=== PATIENT | male | born 1985 | race Caucasian/White ===

== ENCOUNTER 2016-11-11 13:48 | Emergency (ER) | payer SELFPAY ==
[~2016-11-11] VITALS: Ht 170.2 cm; Wt 96.6 kg
[~2016-11-11 13:48] MED LIST: ADVIL200 M2 PO; ALBUTEROL SULF8.5 GM IH; BLUE; FLEXERIL10 MG PO; FLOVENT 11120 INHALA; LYRICA; MOTRIN100 MG/5 M PO; NAPROXEN; NOHOMEMEDS; PREDNISONE10 MG PO; PREDNISONE20 MG PO; PROVENTIL HFA6.7 GM IH; PROVENTIL,2.5 MG/3 M IH; TYLENOL650 MG/20. PO; VENTOLIN HFA18 GM IH
[2016-11-11 14:40] LABS: BASOPHIL COUNT 0.1 K/uL (0-0.1); EOSINOPHIL (%) 0.6 % (0-5); EOSINOPHIL COUNT 0.1 K/uL (0-0.3); HEMATOCRIT 43.8 % (38.0-50.0); IMMATURE GRANULOCYTE (%) 0.1 % (0.0-0.7); IMMATURE GRANULOCYTE COUNT 0.1 K/uL; MCH 29.9 PG (29.0-34.0); MCHC 34.2 G/DL (30.0-36.0); MCV 87.4 FL (86-99); MEAN PLAT.VOLUME 8.8 uM^3 (9.0-12.4); MONOCYTE (%) 9.4 % (3-12); NEUTROPHIL (%) 69.7 % (45-76); NEUTROPHIL COUNT 7.2 K/uL (1.8-6.4); PLATELET COUNT 281 K/uL (156-360); RBC DIS.WIDTH-CV 12.9 % (11.8-14.6); RBC DIS.WIDTH-SD 40.7 % (39-53); RED BLOOD COUNT 5.01 M/uL (4.00-5.50); WHITE BLOOD COUNT 10.3 K/uL (4.1-10.2)
[2016-11-11 14:54] LABS: CHLORIDE 100 mEq/L (99-109); POTASSIUM 3.4 mEq/L (3.7-5.4); SODIUM 137 mEq/L (136-147)
[2016-11-11 14:56] LABS: GLUCOSE 87 mg/dL (70-99)
[2016-11-11 14:57] LABS: ANION GAP 12 MEQ/L (2-14)
[2016-11-11 15:00] LABS: GFR ESTIMATE (CALCULATED) > 59 mL/min/
[2016-11-11 15:01] LABS: UREA NITROGEN (BUN) 9 mg/dL (9-23)
[2016-11-11 16:28] VITALS: BP 00/00
== END 2016-11-11 16:34 | disposition left against medical advice (07) ==
LOC: EME 13:48
PROVIDERS: Physician Assistant
DX: R53.83 Other fatigue (principal); F17.200 Nicotine dependence, unspecified, uncomplicated
CPT/HCPCS: 80048; 85025; 93005; 99281; 99284

== ENCOUNTER 2016-11-28 23:34 | Emergency (ER) | payer SELFPAY ==
[~2016-11-28] VITALS: Ht 167.6 cm; Wt 97.8 kg
[2016-11-28 23:40] VITALS: BP 161/87
[2016-11-29] LABS: HEMATOCRIT 48.7 % (38.0-50.0); MCH 29.3 PG (29.0-34.0); MCHC 32.9 G/DL (30.0-36.0); MCV 89.2 FL (86-99); MEAN PLAT.VOLUME 8.9 uM^3 (9.0-12.4); PLATELET COUNT 319 K/uL (156-360); RBC DIS.WIDTH-CV 12.7 % (11.8-14.6); RBC DIS.WIDTH-SD 41.7 % (39-53); RED BLOOD COUNT 5.46 M/uL (4.00-5.50); WHITE BLOOD COUNT 9.3 K/uL (4.1-10.2)
[2016-11-29 00:13] LABS: CHLORIDE 102 mEq/L (99-109); POTASSIUM 3.5 mEq/L (3.7-5.4); SODIUM 141 mEq/L (136-147)
[2016-11-29 00:15] LABS: GLUCOSE 91 mg/dL (70-99)
[2016-11-29 00:16] LABS: ANION GAP 11 MEQ/L (2-14)
[2016-11-29 00:18] LABS: GFR ESTIMATE (CALCULATED) > 59 mL/min/
[2016-11-29 00:19] LABS: UREA NITROGEN (BUN) 15 mg/dL (9-23)
[2016-11-29 00:21] LABS: TROP-I INTERPRETATION NEGATIVE; TROPONIN-I < 0.01 ng/mL (0.0-0.30)
== END 2016-11-29 02:49 | disposition left against medical advice (07) ==
LOC: EME 23:34
DX: R07.89 Other chest pain (principal); Z53.21 Procedure and treatment not carried out due to patient leaving prior to being seen by health care provider
CPT/HCPCS: 71020; 80048; 84484; 85027; 93005

== ENCOUNTER 2017-03-10 07:08 | Emergency (ER) | payer SELFPAY ==
[~2017-03-10] VITALS: Ht 170.2 cm; Wt 100.7 kg
[2017-03-10 08:52] VITALS: BP 132/87
== END 2017-03-10 08:53 | disposition home or self-care (01) ==
LOC: EME 07:08
DX: F41.9 Anxiety disorder, unspecified (principal); J45.909 Unspecified asthma, uncomplicated; Z87.891 Personal history of nicotine dependence
CPT/HCPCS: 99281; 99284

== ENCOUNTER 2017-04-02 02:59 | Emergency (ER) | payer SELFPAY ==
[~2017-04-02] VITALS: Ht 170.2 cm; Wt 106.5 kg
[2017-04-02] MEDS ORDERED: ATIVAN1 MG PO (04:50)
[2017-04-02 05:01] VITALS: BP 135/97
== END 2017-04-02 05:03 | disposition home or self-care (01) ==
LOC: EME 02:59
DX: F41.0 Panic disorder [episodic paroxysmal anxiety] (principal); F41.9 Anxiety disorder, unspecified; J45.909 Unspecified asthma, uncomplicated; Z87.891 Personal history of nicotine dependence
CPT/HCPCS: 93005; 99281; 99284

== ENCOUNTER 2017-08-26 09:11 | Emergency (ER) | payer SELFPAY ==
[~2017-08-26] VITALS: Ht 172.7 cm; Wt 110.8 kg
[~2017-08-26 09:11] MED LIST changes: +ATIVAN1 MG PO
[2017-08-26 10:33] LABS: HEMATOCRIT 46.9 % (38.0-50.0); MCH 29.3 PG (29.0-34.0); MCHC 33.5 G/DL (30.0-36.0); MCV 87.7 FL (86-99); MEAN PLAT.VOLUME 9.5 uM^3 (9.0-12.4); PLATELET COUNT 300 K/uL (156-360); RBC DIS.WIDTH-CV 12.8 % (11.8-14.6); RBC DIS.WIDTH-SD 41.1 % (39-53); RED BLOOD COUNT 5.35 M/uL (4.00-5.50); WHITE BLOOD COUNT 5.7 K/uL (4.1-10.2)
[2017-08-26 10:50] LABS: TROP-I INTERPRETATION NEGATIVE; TROPONIN-I < 0.01 ng/mL (0.0-0.30)
[2017-08-26 10:53] LABS: CHLORIDE 103 mEq/L (99-109); SODIUM 138 mEq/L (136-147)
[2017-08-26 10:55] LABS: GLUCOSE 106 mg/dL (70-99)
[2017-08-26 10:56] LABS: ANION GAP 11 MEQ/L (2-14)
[2017-08-26 10:59] LABS: GFR ESTIMATE (CALCULATED) > 59 mL/min/ (58.99-99999)
[2017-08-26 11:00] LABS: UREA NITROGEN (BUN) 8 mg/dL (9-23)
[2017-08-26] MEDS ORDERED: ATARAX,VISTARIL50 MG PO (11:24)
[2017-08-26 11:32] VITALS: BP 121/74
== END 2017-08-26 11:35 | disposition home or self-care (01) ==
LOC: EME 09:11
PROVIDERS: Nurse Practitioner Family
DX: F43.9 Reaction to severe stress, unspecified (principal); F41.9 Anxiety disorder, unspecified; R00.2 Palpitations; J45.909 Unspecified asthma, uncomplicated; Z87.891 Personal history of nicotine dependence
CPT/HCPCS: 71020; 80048; 84484; 85027; 93005; 99281; 99284; Q0177

== ENCOUNTER 2018-01-23 06:50 | Emergency (ER) | payer SELFPAY ==
[~2018-01-23] VITALS: Ht 170.2 cm; Wt 104.2 kg
[~2018-01-23 06:50] MED LIST changes: +ATARAX,VISTARIL50 MG PO
[2018-01-23] MEDS ORDERED: FLEXERIL10 MG PO (08:26)
[2018-01-23] MEDS ORDERED: PREDNISONE10 MG PO (08:26)
[2018-01-23 08:30] VITALS: BP 138/90
== END 2018-01-23 08:30 | disposition home or self-care (01) ==
LOC: EME 06:50
DX: M54.41 Lumbago with sciatica, right side (principal); S39.012A Strain of muscle, fascia and tendon of lower back, initial encounter; R20.2 Paresthesia of skin; J45.909 Unspecified asthma, uncomplicated; F41.9 Anxiety disorder, unspecified; Z87.891 Personal history of nicotine dependence
CPT/HCPCS: 99281; 99284

== ENCOUNTER 2018-02-05 20:21 | Emergency (ER) | payer SELFPAY ==
[~2018-02-05] VITALS: Ht 170.2 cm; Wt 102.0 kg
[2018-02-05 20:29] VITALS: BP 135/104
[2018-02-05 21:23] LABS: HEMATOCRIT 46.6 % (38.0-50.0); HEMOGLOBIN 15.7 G/DL (12.5-16.6); MCHC 33.7 G/DL (30.0-36.0); MCV 89.1 FL (86-99); PLATELET COUNT 282 K/uL (156-360); RBC DIS.WIDTH-CV 13.6 % (11.8-14.6); RBC DIS.WIDTH-SD 44.7 % (39-53); RED BLOOD COUNT 5.23 M/uL (4.00-5.50); WHITE BLOOD COUNT 9.3 K/uL (4.1-10.2)
[2018-02-05 21:53] LABS: TROP-I INTERPRETATION NEGATIVE; TROPONIN-I < 0.01 ng/mL (0.0-0.30)
[2018-02-05 22:17] LABS: CHLORIDE 104 mEq/L (99-109); POTASSIUM 3.8 mEq/L (3.7-5.4); SODIUM 141 mEq/L (136-147)
[2018-02-05 22:19] LABS: GLUCOSE 103 mg/dL (70-99)
[2018-02-05 22:22] LABS: CREATININE 0.8 mg/dL (0.6-1.3); GFR ESTIMATE (CALCULATED) > 59 mL/min/ (58.99-99999)
[2018-02-05 22:23] LABS: UREA NITROGEN (BUN) 14 mg/dL (9-23)
== END 2018-02-06 00:22 | disposition left against medical advice (07) ==
LOC: EME 20:21
DX: R07.9 Chest pain, unspecified (principal); Z53.21 Procedure and treatment not carried out due to patient leaving prior to being seen by health care provider
CPT/HCPCS: 71046; 80048; 84484; 85027; 93005

== ENCOUNTER 2018-02-20 03:42 | Emergency (ER) | payer SELFPAY ==
[~2018-02-20] VITALS: Ht 170.2 cm; Wt 103.7 kg
[2018-02-20] MEDS ORDERED: ALBUTEROL2.5 MG/3 M IH (04:48)
[2018-02-20 05:07] VITALS: BP 153/89
== END 2018-02-20 05:08 | disposition home or self-care (01) ==
LOC: EME 03:42
DX: J98.01 Acute bronchospasm (principal); J45.909 Unspecified asthma, uncomplicated; F41.9 Anxiety disorder, unspecified; Z87.891 Personal history of nicotine dependence
CPT/HCPCS: 71046; 94640; 99281; 99283